=== PATIENT | male | born 1995 | race Caucasian/White ===

== ENCOUNTER 2019-03-29 21:17 | Emergency (ER) | payer BC ==
[~2019-03-29] VITALS: Ht 180.3 cm; Wt 84.1 kg
[2019-03-29 21:30] VITALS: BP 145/63; PULSE 82; TEMP 98.9
== END 2019-03-29 23:52 | disposition home or self-care (01) ==
LOC: COL.ER 21:17
DX: S80.811A Abrasion, right lower leg, initial encounter (principal); W00.0XXA Fall on same level due to ice and snow, initial encounter; W22.8XXA Striking against or struck by other objects, initial encounter; Y92.009 Unspecified place in unspecified non-institutional (private) residence as the place of occurrence of the external cause